=== PATIENT | male | born 1960 | race American Indian/Alaskan Native ===

== ENCOUNTER 2019-07-04 15:48 | Outpatient (CLI) | payer OTHER ==
--- NOTE | 2019-07-04 18:02 | XRay Report ---
LUMBAR SPINE, 3 VIEWS INDICATION / CLINICAL INFORMATION: LOWER BACK PAIN, DISABILITY EXAMINATION. COMPARISON: None available. FINDINGS: Vertebral body heights and disc spaces are fairly well-preserved. Alignment is normal. No fracture id entified. There is mild facet degenerative change at L5-S1. There is dense aortoiliac vascular calcification noted. No visible aneurysm. IMPRESSION: 1. Minimal degenerative change involving the lower lumbar spine. 2. Prominent aortoiliac vascular calcification. Signer Name: Lacey Sarah MD Signed: 07/04/2019 5:57 PM Workstation Name: [id number]
== END 2019-07-04 15:49 | disposition home or self-care (01) ==
LOC: XRAY 15:48
PROVIDERS: ATTEND Internal Medicine
DX: Z02.71 Encounter for disability determination (principal); M47.816 Spondylosis without myelopathy or radiculopathy, lumbar region
CPT/HCPCS: 72100